=== PATIENT | female | born 1980 | race Caucasian/White ===

== ENCOUNTER → 2017-04-06 | Outpatient (CLI) | payer BC ==
[2017-04-06] MEDS: GADOBUTROL 7.5 MMOL/7.5 ML VIAL IV ×2 (10:52)
== END | disposition home or self-care (01) ==
LOC: KCIC MRI 09:43
DX: H54.62 Unqualified visual loss, left eye, normal vision right eye (principal); G93.2 Benign intracranial hypertension; M27.40 Unspecified cyst of jaw
CPT/HCPCS: 70543; 70553; A9585